=== PATIENT | female | born 1975 | race Caucasian/White ===

== ENCOUNTER 2017-09-20 13:25 | Emergency (ER) | payer OTHER ==
[~2017-09-20] VITALS: Ht 167.6 cm; Wt 75.0 kg
[~2017-09-20 13:25] MED LIST: AMLO5TAB2 PO; ASPI81TA23 PO; BUPR150XL PO; PREN29TA PO
[2017-09-20 13:33] VITALS: BP 137/74; PULSE 87; RESP 16; TEMP 97.8; O2SAT 98
--- NOTE | 2017-09-20 15:38 | PD ---
HPI Chief Complaint: Skin Problem Time Seen by Provider: 15:22 Travel History International Travel<30 days: No Contact w/Intl Traveler<30days: No Traveled to known affect area: No History of Present Illness HPI Patient is a 41 year old female who comes in complaining of swelling to her left eyelid. She is currently on Azithromycin and Prednisone for an upper respiratory infection. She says she woke up this morning with swelling to her upper eyelid as well as some itching. She says she called her doctor who told her to come to the ED to make sure she did not have orbital cellulitis. She says she feels like her symptoms have improved since this morning without any intervention. She says she has never had any pain to her eye. She denies any drainage from the eye. She denies any vision changes. She denies any shortness of breath and feels that overall her symptoms from her URI are improving as well. Severity is mild. PFSH Past Medical History Medical History: Denies Significant Hx ?: Not LMP: 09/20/17 Past Surgical History Surgical History: No Previous Surgery Social History Tobacco Use: No Allergies-Medications (Allergen,Severity, Reaction): Coded Allergies: No Known Allergies (Verified Allergy, Unknown, 09/20/17) Reported Meds & Prescriptions Reported Meds & Active Scripts Active Wellbutrin Xl 24 HR (Bupropion HCl) 150 Mg Tab 150 Mg PO DAILY Amlodipine (Amlodipine Besylate) 5 Mg Tab 5 Mg PO DAILY Reported Lisinopril 5 Mg Tab 5 Mg PO DAILY Aspirin EC (Aspirin) 81 Mg Tabdr 81 Mg PO DAILY Review of Systems General / Constitutional: No: Fever, Chills Eyes: No: Blurred Vision, Drainage, Pain HENT: No: Headaches, Lightheadedness Cardiovascular: No: Chest Pain or Discomfort Respiratory: No: Shortness of Breath Gastrointestinal: No: Nausea, Vomiting Musculoskeletal: No: Myalgias, Weakness Skin: No Rash Physical Exam Narrative GENERAL: Awake and alert, in no acute distress. SKIN: Focused skin assessment warm/dry. No rash or erythema. HEAD: Atraumatic. Normocephalic. EYES: Pupils equal and round and reactive. No scleral icterus. EOMI, no pain with eye movement. Minimal swelling of the left upper eyelid. There is no surrounding erythema or warmth. ENT: Mucous membranes pink and moist. CARDIOVASCULAR: Regular rate and rhythm. No murmur appreciated. RESPIRATORY: No accessory muscle use. Clear to auscultation. Breath sounds equal bilaterally. MUSCULOSKELETAL: No obvious deformities. No clubbing. No cyanosis. No edema. NEUROLOGICAL: Awake and alert. No obvious cranial nerve deficits. Motor grossly within normal limits. Normal speech. Data Data Last Documented VS Vital Signs Date Time Temp Pulse Resp B/P (MAP) Pulse Ox O2 Delivery O2 Flow Rate FiO2 09/20/17 16:06 09/20/17 13:33 97.8 87 16 98 Orders Orders Ed Discharge Order (09/20/17 15:56) [facility] Medical Decision Making Medical Screen Exam Complete: Yes Emergency Medical Condition: Yes Medical Record Reviewed: Yes Differential Diagnosis Allergic reaction versus stye versus cellulitis versus URI Narrative Course Patient is a 41 year old female who comes in due to swelling and itching of her left upper eyelid. Exam shows minimal swelling, no other abnormalities. There are no signs of cellulitis. I discussed with the patient she may develop a stye or the beginnings of an allergy. She is already on steroids. She is encouraged to continue her current regimen of medications, however if thing worsen, she may need to stop the azithromycin. She is advised to take Benadryl as needed for itching. Advised to follow up with her doctor. Advised to return to the ED as needed for any worsening symptoms. Diagnosis Primary Impression: Swelling of eyelid Qualified Codes: H02.846 - Edema of left eye, unspecified eyelid Patient Instructions: Allergies (ED), General Instructions Additional Instructions: Follow-up with your doctor. If your symptoms worsen, he may need to stop the azithromycin. Take Benadryl as needed. Return to the ED as needed for any worsening symptoms. Apply warm compresses to your eye. Disposition: 01 DISCHARGE HOME Condition: Stable Padmini Anders MD Sep 20, 2017 15:38
[2017-09-20] MEDS ORDERED: LISI-519 PO (15:54)
== END 2017-09-20 16:07 | disposition home or self-care (01) ==
LOC: NEPD 13:25
DX: H02.844 Edema of left upper eyelid (principal)
CPT/HCPCS: 99282